=== PATIENT | female | born 1990 | race African-American/Black ===

== ENCOUNTER 2024-05-11 21:05 | Emergency (ER) | payer SELFPAY ==
[~2024-05-11] VITALS: Ht 157.5 cm; Wt 60.0 kg
[2024-05-11 21:16] VITALS: TEMP 97.8
[2024-05-11] MEDS ORDERED: HYDROcodone/Acetaminophen 10-325 MG TAB PO ONE (22:00)
[2024-05-11] MEDS ORDERED: NORCO 325 MG-51 TAB PO (23:03)
[2024-05-11 23:20] VITALS: BP 136/95; PULSE 82
[2024-05-12] MEDS ORDERED: NORCO 325 MG-51 TAB PO (10:48)
== END 2024-05-11 23:20 | disposition home or self-care (01) ==
LOC: COL.ER 21:05
DX: S82.52XA Displaced fracture of medial malleolus of left tibia, initial encounter for closed fracture (principal); W01.0XXA Fall on same level from slipping, tripping and stumbling without subsequent striking against object, initial encounter; Y93.01 Activity, walking, marching and hiking